=== PATIENT | female | born 1965 | race African-American/Black ===

== ENCOUNTER 2022-09-22 16:18 | Emergency (ER) | payer OTHER ==
[2022-09-22] MEDS ORDERED: SODIUM CHLORIDE 0.9% 1,000 ML IV STA (16:23)
[2022-09-22] MEDS ORDERED: ONDANSETRON 4 MG/2 ML VIAL IVP STA (16:23)
--- NOTE | 2022-09-22 16:25 | ED ---
Abdominal Pain HPI - General Stated Complaint: Abd Pain Time Seen by Provider: 09/22/22 16:21 Source: old records reviewed Mode of arrival: EMS Limitations: no limitations - History of Present Illness Initial Comments: This is a 57-year-old female DF for evaluation she presents today for evaluation of abdominal pain feels like she has urinary tract infection. Comes in from [facility] where she is going to treatment for crack cocaine. Patient has no fevers no nausea no vomiting no diarrhea. Again she feels like she may have urinary tract infection but does have abdominal tenderness epigastrically. No prior history of similar complaints. No medical history MD Complaint: abdominal pain -: days(s) Location: periumbilical Radiation: none Migration to: no migration Severity: mild Severity scale (1-10): 4 Quality: aching Consistency: constant Improves With: nothing Worsens With: nothing Associated Symptoms: denies other symptoms Treatments Prior to Arrival: other (0) - Related Data Home Medications Medication Instructions Recorded Confirmed ARIPiprazole [Abilify] 10 mg PO DAILY 09/22/22 09/22/22 Acetaminophen Tab [Tylenol] 650 mg PO Q4H PRN 09/22/22 09/22/22 Albuterol Inhaler [Ventolin Hfa 1 - 2 puff INHALATION RT-Q4H PRN 09/22/22 09/22/22 Inhaler] Budesonide/Formoterol Fumarate 1 puff INHALATION RT-BID 09/22/22 09/22/22 [Symbicort 160-4.5 Mcg Inhaler] Calcium, Magnesium, Zinc, With 1 tab PO TID PRN 09/22/22 09/22/22 Vitamin D3 334/134/5mg Chlorpheniramine Maleate 4 mg PO Q4H PRN 09/22/22 09/22/22 [Chlor-Trimeton] FLUoxetine HCL 20 mg PO DAILY 09/22/22 09/22/22 Ibuprofen [Motrin Ib] 600 mg PO Q6H PRN 09/22/22 09/22/22 Multivitamins, Thera [Multivitamin 1 tab PO DAILY 09/22/22 09/22/22 (formulary)] Nicotine 14Mg/24Hr Patch [Habitrol 1 patch TRANSDERM DAILY 09/22/22 09/22/22 14Mg/24Hr Patch] QUEtiapine [SEROquel] 100 mg PO HS 09/22/22 09/22/22 Sulfamethox-Tmp 800-160Mg [Bactrim 1 tab PO Q12HR 09/22/22 09/22/22 DS 800-160 mg] Thiamine [Vitamin B-1] 100 mg PO DAILY 09/22/22 09/22/22 busPIRone HCL 15 mg PO BID 09/22/22 09/22/22 guaiFENesin [guaiFENesin Oral 200 mg PO Q4H PRN 09/22/22 09/22/22 Solution] Allergies Allergy/AdvReac Type Severity Reaction Status Date / Time aspirin Allergy Rash/Hives Verified 09/22/22 17:29 ciprofloxacin [From Cipro] Allergy Rash/Hives Verified 09/22/22 17:29 Penicillins Allergy Rash/Hives Verified 09/22/22 17:29 Review of Systems ROS Statement: Those systems with pertinent positive or pertinent negative responses have been documented in the HPI. ROS Other: All systems not noted in ROS Statement are negative. General Exam General appearance: alert, in no apparent distress Head exam: Present: atraumatic, normocephalic, normal inspection Eye exam: Present: normal appearance, PERRL, EOMI. Absent: scleral icterus, conjunctival injection, periorbital swelling ENT exam: Present: normal exam, mucous membranes moist Neck exam: Present: normal inspection. Absent: tenderness, meningismus, lymphadenopathy Respiratory exam: Present: normal lung sounds bilaterally. Absent: respiratory distress, wheezes, rales, rhonchi, stridor Cardiovascular Exam: Present: regular rate, normal rhythm, normal heart sounds. Absent: systolic murmur, diastolic murmur, rubs, gallop, clicks GI/Abdominal exam: Present: soft, normal bowel sounds. Absent: distended, tenderness, guarding, rebound, rigid Extremities exam: Present: normal inspection, full ROM, normal capillary refill. Absent: tenderness, pedal edema, joint swelling, calf tenderness Back exam: Present: normal inspection Neurological exam: Present: alert, oriented X3, CN II-XII intact Psychiatric exam: Present: normal affect, normal mood Skin exam: Present: warm, dry, intact, normal color. Absent: rash Course Vital Signs 09/22/22 09/22/22 16:25 18:17 Temperature 98.7 F 98.2 F Pulse Rate 73 60 Respiratory 18 18 Rate Blood Pressure 174/85 196/104 O2 Sat by Pulse 98 100 Oximetry - Reevaluation(s) Reevaluation #1: 09/22/22 18:19 Medical record is reviewed Reevaluation #2: 09/22/22 18:19 Patient symptoms are improved Reevaluation #3: 09/22/22 18:19 Patient informed results and questions answered Reevaluation #4: 09/22/22 18:19 Was pt. sent in by a medical professional or institution? @ -no Did you speak to anyone other than the patient for history? @ -no Did you review nursing and triage notes? @ -agree Were old charts reviewed? @ -no Differential Diagnosis? @ -prior,abbdominal pain EKG interpreted by me (3pts min.)? @ -yes X-rays interpreted by me (1pt min.)? @ -no CT interpreted by me (1pt min.)? @ -no U/S interpreted by me (1pt. min.)? @ -no What testing was considered but not performed? (CT, X-rays, U/S, labs)? Why? @ -no What meds were considered but not given? Why? @ -no Did you discuss the management of the patient with other professionals? @ -no Did you reconcile home meds? @ -no Was smoking cessation discussed for >3mins.? @ -no Was critical care preformed (if so, how long)? @ -no Were there social determinants of health that impacted care today? How? (Homelessness, low income, unemployed, alcoholism, drug addiction, transportation, low edu. Level, literacy, decrease access to med. care, fpc, rehab)? @ -no Was there de-escalation of care discussed even if they declined? (Discuss DNR or withdrawal of care, Hospice)? @ -no What co-morbidities impacted this encounter? (DM, HTN, Smoking, COPD, CAD, Cancer, CVA, Hep., AIDS, mental health diagnosis, sleep apnea, morbid obesity)? @ -no Was patient admitted / discharged? @ -dc Undiagnosed new problem with uncertain prognosis? @ -no Drug Therapy requiring intensive monitoring for toxicity (Heparin, Nitro, Insulin, Cardizem)? @ -no Were any procedures done? @ -no Diagnosis/symptom? @ -no Acute, or Chronic, or Acute on Chronic? @ -acute Uncomplicated (without systemic symptoms) or Complicated (systemic symptoms)? @ -no Side effects of treatment? @ -no Exacerbation, Progression, or Severe Exacerbation] @ -no Poses a threat to life or bodily function? @ -no Reevaluation #5: 09/22/22 18:19 Differential Abdominal Pain Women: Appendicitis, Cholecystitis, diverticulosis, ischemic bowel, pancreatitis, hepatitis, UTI, gastroenteritis, AAA, incarcerated hernia, bowel obstruction, constipation, inflammatory bowel, hepatitis, peptic ulcer disease, splenic infarction, perforated viscus, vulvitis, ovarian torsion, PID, kidney stone, placenta abruption, this is not meant to be an all-inclusive list Medical Decision Making - Medical Decision Making 57 female to the emergency department for evaluation patient presents today for evaluation of abdominal pain bowel pain improved here in the ER blood pressures improved here in the ER patient feels well and can be discharged home - Lab Data Result diagrams: 09/22/22 16:47 09/22/22 16:47 Lab Results 09/22/22 09/22/22 09/22/22 Range/Units 16:47 16:47 16:47 WBC 7.0 (3.8-10.6) k/uL RBC 4.61 (3.80-5.40) m/uL Hgb 11.4 (11.4-16.0) gm/dL Hct 34.0 (34.0-46.0) % MCV 73.8 L (80.0-100.0) fL MCH 24.8 L (25.0-35.0) pg MCHC 33.6 (31.0-37.0) g/dL RDW 19.0 H (11.5-15.5) % Plt Count 332 (150-450) k/uL MPV 6.6 Neutrophils % 44 % Lymphocytes % 44 % Monocytes % 6 % Eosinophils % 2 % Basophils % 1 % Neutrophils # 3.1 (1.3-7.7) k/uL Lymphocytes # 3.1 (1.0-4.8) k/uL Monocytes # 0.4 (0-1.0) k/uL Eosinophils # 0.1 (0-0.7) k/uL Basophils # 0.0 (0-0.2) k/uL Anisocytosis Slight Microcytosis Moderate Sodium 137 (137-145) mmol/L Potassium 4.8 (3.5-5.1) mmol/L Chloride 105 (98-107) mmol/L Carbon Dioxide 25 (22-30) mmol/L Anion Gap 7 mmol/L BUN 21 H (7-17) mg/dL Creatinine 0.98 (0.52-1.04) mg/dL Est GFR (CKD-EPI)AfAm 75 (>60 ml/min/1.73 sqM) Est GFR (CKD-EPI)NonAf 65 (>60 ml/min/1.73 sqM) Glucose 80 (74-99) mg/dL Plasma Lactic Acid Wally 0.8 (0.7-2.0) mmol/L Calcium 9.2 (8.4-10.2) mg/dL Total Bilirubin 0.1 L (0.2-1.3) mg/dL AST 22 (14-36) U/L ALT 16 (4-34) U/L Alkaline Phosphatase 36 L (38-126) U/L Total Protein 6.4 (6.3-8.2) g/dL Albumin 3.8 (3.5-5.0) g/dL Amylase 92 (30-110) U/L Lipase 220 (23-300) U/L - Radiology Data Radiology results: report reviewed (CT of the abdomen and pelvis negative for acute disease), image reviewed Disposition Clinical Impression: Abdominal pain Disposition: HOME SELF-CARE Condition: Good Instructions (If sedation given, give patient instructions): Abdominal Pain (ED) Is patient prescribed a controlled substance at d/c from ED?: No Referrals: None,Stated [Primary Care Provider] - 1-2 days Time of Disposition: 18:30
[2022-09-22 16:34] VITALS: RESP 18
[2022-09-22 17:05] LABS: Anisocytosis Slight; Basophils % (A) 1 %; Eosinophils # (A) 0.1 k/uL (0-0.7); Eosinophils % (A) 2 %; HGB 11.4 gm/dL (11.4-16.0); Lymphocytes # (A) 3.1 k/uL (1.0-4.8); Lymphocytes % (A) 44 %; MCH 24.8 pg (25.0-35.0); MCHC 33.6 g/dL (31.0-37.0); MCV 73.8 fL (80.0-100.0); Mean Platelet Volume 6.6; Microcytosis Moderate; Monocytes # (A) 0.4 k/uL (0-1.0); Monocytes % (A) 6 %; Neutrophils # (A) 3.1 k/uL (1.3-7.7); Neutrophils % (A) 44 %; Platelet Count 332 k/uL (150-450); RBC 4.61 m/uL (3.80-5.40)
[2022-09-22 17:22] LABS: Albumin 3.8 g/dL (3.5-5.0); Calcium 9.2 mg/dL (8.4-10.2); Potassium 4.8 mmol/L (3.5-5.1); Total Bilirubin 0.1 mg/dL (0.2-1.3); Total Protein 6.4 g/dL (6.3-8.2)
[2022-09-22] MEDS ORDERED: HYDROmorphone 1 MG/ML 1 ML SYRINGE IVP STA (17:32)
[2022-09-22] MEDS ORDERED: cloNIDine HCL 0.2 MG TAB PO STA (18:15)
[2022-09-22] MEDS ORDERED: hydrALAZINE HCL 20 MG/ML 1 ML VIAL IVP STA (18:15)
--- NOTE | 2022-09-22 18:21 | CT ---
EXAMINATION TYPE: CT abdomen pelvis wo con CT DLP: 400.6 mGycm, Automated exposure control for dose reduction was used. DATE OF EXAM: 09/22/2022 5:43 PM COMPARISON: None. CLINICAL INDICATION:Female, 57 years old with history of pain; umbilical pain TECHNIQUE: Axial CT of the abdomen and pelvis. Sagittal and coronal reformats were created on a [employer] workstation. Contrast used: None Oral contrast used: without Oral Contrast FINDINGS: LOWER CHEST: Unremarkable ABDOMEN LIVER: Unremarkable GALLBLADDER AND BILE DUCTS: Unremarkable. PANCREAS: Unremarkable. SPLEEN: Unremarkable. ADRENAL GLANDS: Unremarkable. KIDNEYS AND URETERS: Mild dilation of the collecting systems bilaterally. PELVIS BLADDER: Unremarkable REPRODUCTIVE: The uterus is not definitively visualized may be atrophic or surgically absent. ABDOMEN & PELVIS STOMACH AND BOWEL: No evidence of bowel obstruction. The appendix is not definitively visualized PERITONEUM/RETROPERITONEUM: No evidence of pneumoperitoneum or free fluid. VASCULATURE: No evidence of aortic aneurysm. MUSCULOSKELETAL: No acute osseous abnormalities, multilevel disc degeneration changes with postsurgic al changes at L4-L5. Spinal canal and neural foramen appear patent. LYMPH NODES: No gross evidence fo r lymphadenopathy. SOFT TISSUE/ABDOMINAL WALL: Fat-containing umbilical hernia present measuring 4 mm at the neck. IMPRESSION: 1. Small fat-containing umbilical hernia. 2. Limited evaluation without IV contrast, no evidence for renal calculus. Mild collecting system pr ominence bilaterally which could be secondary to patient's time since last void/gallbladder. No other acute abdominal process to explain the patient's pain.
[2022-09-22 19:10] VITALS: BP 188/89; PULSE 63; TEMP 97.8
== END 2022-09-22 19:10 | disposition home or self-care (01) ==
LOC: EC 16:18
DX: R10.9 Unspecified abdominal pain (principal); Z88.6 Allergy status to analgesic agent; Z88.0 Allergy status to penicillin; Z88.1 Allergy status to other antibiotic agents
CPT/HCPCS: 36415; 80053; 82150; 83605; 83690; 85025; 74176; 99285; 96374; 96375; 96361 ×2; J0360; J1170